=== PATIENT | female | born 1995 | race Caucasian/White ===

== ENCOUNTER → 2020-03-19 09:19 | Outpatient (CLI) | payer OTHER, SELFPAY ==
--- NOTE | ~2020-03-19 | US_ITS ---
US breast RT complete 03/19/2020 09:47 Indication: Palpable right breast lump and follow-up right breast masses. Procedure: Resolution Limited right breast ultrasound Comparison: 01/30/2019 Findings: At 1:00, 0.5 cm from the nipple, there is a hypoechoic mass with slightly irregular margins , peripheral vascularity and no significant posterior features. This mass measures 13 x 12 x 13 mm co mpared with 11 x 10 x 8 mm on prior examination. At 8:00, 2 cm from the nipple, there is an oval circ umscribed hypoechoic mass measuring 5 mm without internal vascularity or posterior features, likely b enign. Impression: 1: Slightly increased size of hypoechoic right breast mass at 1:00, 0.5 cm from the nipple in the are a of palpable concern. Ultrasound-guided right breast biopsy recommended. BI-RADS CATEGORY 4-SUSPICIOUS ABNORMALITY RECOMMENDATION: Ultrasound-guided right breast biopsy recommended. Reviewed, dictated and finalized at location A. Impression: 1: Slightly increased size of hypoechoic right breast mass at 1:00, 0.5 cm from the nipple in the area of palpable concern. Ultrasound-guided right breast bio psy recommended. BI-RADS CATEGORY 4-SUSPICIOUS ABNORMALITY RECOMMENDATION: Ultrasound-guided right breast biopsy recommended.
== END ==
PROVIDERS: Visit Provider Advanced Practice Midwife
DX: N63.10 Unspecified lump in the right breast, unspecified quadrant (principal); R92.8 Other abnormal and inconclusive findings on diagnostic imaging of breast
CPT/HCPCS: 76641